=== PATIENT | female | born 1935 | race Caucasian/White ===

== ENCOUNTER → 2016-11-07 | Outpatient (CLI) | payer OTHER ==
[~2016-11-07] MED LIST: ACET-1311 PO; CHOL200027 PO; DOCU100C31 PO; ESCI1TAB6 PO; IPRASOL4 INH; KFL500 PO; LEVO50TA PO; LISI-461 PO; LSX20 PO; MRLP17 PO; MULTTAB PO; OXGN; PLMINSR5 INH; PRT/40 PO; SDMC1 PO; SUCR1TAB PO
[2016-11-07 09:13] LABS: BLOOD UREA NITROGEN 23 mg/dl (7-18); BUN/CREATININE RATIO 21.3 (10-20); CALCIUM 9.5 mg/dl (8.5-10.1); CARBON DIOXIDE 29 mmol/L (21-32); CHLORIDE 104 mmol/L (98-107); GLUCOSE 119 mg/dl (70-99); SODIUM 143 mmol/L (136-145)
== END ==
LOC: C.LABCC 08:49
PROVIDERS: ATTEND Internal Medicine
DX: R79.89 Other specified abnormal findings of blood chemistry (principal)

== ENCOUNTER → 2016-11-27 | Outpatient (CLI) | payer OTHER ==
[2016-11-27 08:17] LABS: BLOOD UREA NITROGEN 24 mg/dl (7-18); BUN/CREATININE RATIO 18.3 (10-20); CARBON DIOXIDE 33 mmol/L (21-32); CHLORIDE 103 mmol/L (98-107); GLUCOSE 103 mg/dl (70-99); POTASSIUM 4.9 mmol/L (3.5-5.1); SODIUM 143 mmol/L (136-145)
== END ==
LOC: C.LABCC 07:57
PROVIDERS: ATTEND Internal Medicine
DX: E87.1 Hypo-osmolality and hyponatremia (principal)

== ENCOUNTER → 2016-12-17 | Outpatient (CLI) | payer OTHER ==
--- NOTE | 2016-12-17 14:38 | DIAGNOSTIC IMAGING REPORT ---
CT OF THE CHEST WITHOUT IV CONTRAST CLINICAL HISTORY: Chronic obstructive pulmonary disease. COMPARISON STUDY: Chest CT August 07, 2016 and chest radiograph August 12, 2016. CT DOSE: 476.86 mGy.cm TECHNIQUE: Axial images of the chest were obtained without IV contrast. Images were reviewed in the axial, sagittal, and coronal planes. IV contrast was not administered for this examination. FINDINGS: No enlarged axillary, mediastinal or hilar lymph nodes are present. There is no pericardial effusion. Bilateral lower lobe opacities are suggestive of atelectasis with volume loss. The previously described left lower lobe nodule is partially obscured on this exam but likely visualized, shown on axial image 120 of 251. Measurements are difficult to obtain given the adjacent atelectasis but this nodule measures approximately 1.6 cm. There are a few indeterminate groundglass opacities within the right upper and middle lobes that measure up to 1.1 cm. These were present on prior exam. Central airways are patent. There is no pneumothorax. There is a trace left pleural effusion. There are multiple old thoracic spine compression fractures. Nodularity of the left adrenal gland is unchanged. IMPRESSION: 1. Bilateral lower lobe opacities suggestive of atelectasis with volume loss. 2. The previously described left lower lobe nodule is largely obscured by atelectasis although this nodule is likely visualized and has likely slightly increased in size, measuring approximately 1.6 cm. This remains suspicious for bronchogenic carcinoma. 3. Several indeterminate ground glass opacities within the right lung which could reflect low-grade neoplasms. 4. Moderate emphysema. 5. No thoracic lymphadenopathy. Electronically signed by: Rodrigo Arango M.D. 12/17/2016 2:37 PM Dictated Date/Time: 12/17/2016 10:59 AM
== END | disposition home or self-care (01) ==
LOC: C.CTS 10:29
PROVIDERS: ATTEND Internal Medicine Pulmonary Disease
DX: J44.9 Chronic obstructive pulmonary disease, unspecified (principal)

== ENCOUNTER → 2017-01-14 | Outpatient (CLI) | payer OTHER | LOC: C.LABCC 09:01 | PROVIDERS: ATTEND Internal Medicine | DX: K21.9 Gastro-esophageal reflux disease without esophagitis (principal); E55.9 Vitamin D deficiency, unspecified ==

== ENCOUNTER → 2017-03-14 | Outpatient (CLI) | payer OTHER ==
[~2017-03-14] MED LIST changes: +PANT40TA2 PO; -PRT/40 PO
[2017-03-14 01:47] LABS: URINE APPEARANCE CLEAR (CLEAR); URINE BILIRUBIN NEG (NEG); URINE COLOR DK YELLOW; URINE NITRITE NEG (NEG); URINE SPECIFIC GRAVITY 1.019 (1.000-1.030); UROBILINOGEN NEG (NEG); ZZUR CULT IF INDIC CLEAN CATCH NO
[2017-03-14 01:49] LABS: MANUAL MICROSCOPIC REQUIRED? NO; REVIEW REQ? NO
[2017-03-14 08:35] LABS: BLOOD UREA NITROGEN 46 mg/dl (7-18); BUN/CREATININE RATIO 23.2 (10-20); CARBON DIOXIDE 33 mmol/L (21-32); CHLORIDE 97 mmol/L (98-107); GLUCOSE 91 mg/dl (70-99); MAGNESIUM 2.3 mg/dl (1.8-2.4); POTASSIUM 4.4 mmol/L (3.5-5.1); SODIUM 137 mmol/L (136-145)
[2017-03-14 08:46] LABS: CALCIUM 9.6 mg/dl (8.5-10.1)
== END ==
LOC: C.LABCC 08:11
PROVIDERS: ATTEND Internal Medicine
DX: E03.9 Hypothyroidism, unspecified (principal); M81.0 Age-related osteoporosis without current pathological fracture; E55.9 Vitamin D deficiency, unspecified; I10 Essential (primary) hypertension; R45.1 Restlessness and agitation; R41.82 Altered mental status, unspecified

== ENCOUNTER → 2017-03-21 | Outpatient (CLI) | payer OTHER ==
[2017-03-21 09:59] LABS: BLOOD UREA NITROGEN 30 mg/dl (7-18); BUN/CREATININE RATIO 17.4 (10-20); CARBON DIOXIDE 33 mmol/L (21-32); CHLORIDE 99 mmol/L (98-107); GLUCOSE 87 mg/dl (70-99); SODIUM 138 mmol/L (136-145)
[2017-03-21 10:15] LABS: CALCIUM 9.5 mg/dl (8.5-10.1)
== END ==
LOC: C.LABCC 08:16
PROVIDERS: ATTEND Internal Medicine
DX: I10 Essential (primary) hypertension (principal)

== ENCOUNTER → 2017-03-27 | Outpatient (CLI) | payer OTHER ==
[2017-03-27 13:00] LABS: BLOOD UREA NITROGEN 33 mg/dl (7-18); BUN/CREATININE RATIO 19.4 (10-20); CALCIUM 9.4 mg/dl (8.5-10.1); CARBON DIOXIDE 32 mmol/L (21-32); CHLORIDE 95 mmol/L (98-107); GLUCOSE 86 mg/dl (70-99); POTASSIUM 3.9 mmol/L (3.5-5.1); SODIUM 135 mmol/L (136-145)
== END | disposition home or self-care (01) ==
LOC: C.LABCC 15:37
PROVIDERS: ATTEND Internal Medicine
DX: R60.9 Edema, unspecified (principal)

== ENCOUNTER → 2017-04-04 | Outpatient (CLI) | payer OTHER ==
[2017-04-04 08:55] LABS: BLOOD UREA NITROGEN 45 mg/dl (7-18); BUN/CREATININE RATIO 17.4 (10-20); CARBON DIOXIDE 32 mmol/L (21-32); CHLORIDE 98 mmol/L (98-107); GLUCOSE 97 mg/dl (70-99); POTASSIUM 3.7 mmol/L (3.5-5.1); SODIUM 138 mmol/L (136-145)
[2017-04-04 08:57] LABS: CALCIUM 9.4 mg/dl (8.5-10.1)
== END ==
LOC: C.LABCC 08:03
PROVIDERS: ATTEND Internal Medicine
DX: E87.1 Hypo-osmolality and hyponatremia (principal)

== ENCOUNTER → 2017-04-08 | Outpatient (CLI) | payer OTHER ==
[2017-04-08 10:27] LABS: BLOOD UREA NITROGEN 37 mg/dl (7-18); BUN/CREATININE RATIO 19.5 (10-20); CALCIUM 9.2 mg/dl (8.5-10.1); CARBON DIOXIDE 34 mmol/L (21-32); CHLORIDE 98 mmol/L (98-107); GLUCOSE 115 mg/dl (70-99); POTASSIUM 3.6 mmol/L (3.5-5.1); SODIUM 138 mmol/L (136-145)
== END ==
LOC: C.LABCC 08:24
PROVIDERS: ATTEND Internal Medicine
DX: I48.91 Unspecified atrial fibrillation (principal)

== ENCOUNTER → 2017-04-23 | Outpatient (CLI) | payer OTHER ==
[~2017-04-23] MED LIST changes: -PANT40TA2 PO; +PRT/40 PO
[2017-04-23 10:31] LABS: BLOOD UREA NITROGEN 18 mg/dl (7-18); BUN/CREATININE RATIO 14.1 (10-20); CARBON DIOXIDE 29 mmol/L (21-32); CHLORIDE 104 mmol/L (98-107); GLUCOSE 94 mg/dl (70-99); POTASSIUM 4.2 mmol/L (3.5-5.1); SODIUM 139 mmol/L (136-145)
[2017-04-23 12:30] LABS: CALCIUM 9.3 mg/dl (8.5-10.1)
== END ==
LOC: C.LABCC 07:51
PROVIDERS: ATTEND Internal Medicine
DX: N28.9 Disorder of kidney and ureter, unspecified (principal)

== ENCOUNTER → 2017-05-08 | Outpatient (CLI) | payer OTHER ==
[2017-05-08 08:51] LABS: BLOOD UREA NITROGEN 22 mg/dl (7-18); BUN/CREATININE RATIO 16.5 (10-20); CALCIUM 9.6 mg/dl (8.5-10.1); CARBON DIOXIDE 29 mmol/L (21-32); CHLORIDE 102 mmol/L (98-107); GLUCOSE 108 mg/dl (70-99); POTASSIUM 4.4 mmol/L (3.5-5.1); SODIUM 136 mmol/L (136-145)
== END ==
LOC: C.LABCC 08:01
PROVIDERS: ATTEND Internal Medicine
DX: N18.9 Chronic kidney disease, unspecified (principal)

== ENCOUNTER → 2017-07-05 | Outpatient (CLI) | payer OTHER ==
[2017-07-05 18:16] LABS: URINE APPEARANCE CLOUDY (CLEAR); URINE BILIRUBIN NEG (NEG); URINE COLOR YELLOW; URINE EPITHELIAL CELL AUTO 0-5 /lpf (0-5); URINE NITRITE NEG (NEG); URINE PH 6.5 (4.5-7.5); URINE SPECIFIC GRAVITY 1.021 (1.000-1.030); UROBILINOGEN NEG (NEG)
[2017-07-05 18:21] LABS: MANUAL MICROSCOPIC REQUIRED? NO; REVIEW REQ? NO
== END | disposition home or self-care (01) ==
LOC: C.LABCC 17:17
PROVIDERS: ATTEND Internal Medicine
DX: R41.0 Disorientation, unspecified (principal); R45.1 Restlessness and agitation

== ENCOUNTER → 2017-07-08 | Outpatient (CLI) | payer OTHER ==
[2017-07-08 08:24] LABS: BASO % 0.5 %; BASO ABS # 0.04 K/uL (0-0.2); COMPLETE YES; EOS % 5.1 %; IG% 0.3 %; LYMPH % 22.4 %; LYMPH ABS # 1.66 K/uL (1.2-3.4); MEAN CELL VOLUME 91.3 fL (80-100); MEAN CORPUSCULAR HEMOGLOBIN 29.3 pg (25-34); MEAN CORPUSCULAR HGB CONC 32.1 g/dl (32-36); MEAN PLATELET VOLUME 10.6 fL (7.4-10.4); MONO % 11.1 %; NEUT % 60.6 %; PLATELET COUNT 251 K/uL (130-400)
[2017-07-08 08:42] LABS: THYROID STIMULATING HORMONE 2.54 uIu/ml (0.300-4.500)
== END ==
LOC: C.LABCC 07:58
PROVIDERS: ATTEND Internal Medicine
DX: R41.0 Disorientation, unspecified (principal); R45.1 Restlessness and agitation; F22 Delusional disorders; R53.83 Other fatigue

== ENCOUNTER → 2017-10-08 | Outpatient (CLI) | payer OTHER ==
[~2017-10-08] MED LIST changes: +PANT40TA2 PO; -PRT/40 PO
[2017-10-08 08:55] LABS: BASO % 0.2 %; BASO ABS # 0.02 K/uL (0-0.2); COMPLETE YES; EOS % 0.6 %; IG% 0.4 %; LYMPH % 7.8 %; LYMPH ABS # 0.83 K/uL (1.2-3.4); MEAN CELL VOLUME 91.5 fL (80-100); MEAN CORPUSCULAR HEMOGLOBIN 29.3 pg (25-34); MEAN CORPUSCULAR HGB CONC 32.1 g/dl (32-36); MEAN PLATELET VOLUME 11.2 fL (7.4-10.4); PLATELET COUNT 195 K/uL (130-400); RED BLOOD COUNT 4.26 M/uL (4.2-5.4); WHITE BLOOD COUNT 10.69 K/uL (4.8-10.8)
[2017-10-08 09:05] LABS: ALT/SGPT 15 U/L (12-78); AST/SGOT 15 U/L (15-37); BLOOD UREA NITROGEN 21 mg/dl (7-18); BUN/CREATININE RATIO 27.7 (10-20); CALCIUM 9.2 mg/dl (8.5-10.1); CARBON DIOXIDE 34 mmol/L (21-32); CHLORIDE 97 mmol/L (98-107); CREATININE 0.76 mg/dl (0.60-1.20); GLUCOSE 131 mg/dl (70-99); POTASSIUM 4.3 mmol/L (3.5-5.1); SODIUM 135 mmol/L (136-145)
[2017-10-08 09:15] LABS: ALB/GLOB RATIO 0.6 (0.9-2); ALKALINE PHOSPHATASE 75 U/L (45-117)
[2017-10-08 09:33] LABS: URINE APPEARANCE CLOUDY (CLEAR); URINE BILIRUBIN NEG (NEG); URINE COLOR YELLOW; URINE EPITHELIAL CELL AUTO 0-5 /lpf (0-5); URINE NITRITE POS (NEG); URINE SPECIFIC GRAVITY 1.019 (1.000-1.030); UROBILINOGEN NEG (NEG)
[2017-10-08 09:46] LABS: MANUAL MICROSCOPIC REQUIRED? NO; REVIEW REQ? NO
== END ==
LOC: C.LABCC 08:33
PROVIDERS: ATTEND Internal Medicine
DX: R50.9 Fever, unspecified (principal); R06.82 Tachypnea, not elsewhere classified; R53.83 Other fatigue; R06.2 Wheezing; E05.90 Thyrotoxicosis, unspecified without thyrotoxic crisis or storm; R41.82 Altered mental status, unspecified

== ENCOUNTER → 2018-01-13 | Outpatient (CLI) | payer OTHER ==
[2018-01-13 08:50] LABS: BLOOD UREA NITROGEN 18 mg/dl (7-18); CALCIUM 9.2 mg/dl (8.5-10.1); CARBON DIOXIDE 35 mmol/L (21-32); GLUCOSE 90 mg/dl (70-99); SODIUM 136 mmol/L (136-145)
== END ==
LOC: C.LABCC 08:16
PROVIDERS: ATTEND Internal Medicine
DX: F03.90 Unspecified dementia, unspecified severity, without behavioral disturbance, psychotic disturbance, mood disturbance, and anxiety (principal)

== ENCOUNTER 2018-02-21 19:00 | Inpatient (IN) | payer OTHER ==
[~2018-02-21] VITALS: Ht 152.4 cm; Wt 67.1 kg
--- NOTE | 2018-02-21 19:23 | EMERGENCY ROOM VISIT NOTE ---
History Report prepared by Eddi: Hien Gillespie Under the Supervision of: Dr. Janene Flores DJordenO. First contact with patient: 19:06 Chief Complaint: RESPIRATORY PROBLEMS Stated Complaint: HYPOXIA, POSSIBLY ASPIRATED, Nursing Triage Summary: Pt from [facility]. was assisting with feeding patient and patient began to cough. Emesis x1. Pt was hypoxic, spO2 in the 50s for EMS. Arrives on NRB. Pt normally wears 3L O2. Pt coughing. Pt does not respond to verbal or stimuli at this time. History of dementia. 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 The patient currently lives at [facility]. Her reports he was assisting feeding his when she began to cough. He notes that she vomited once, she was hypoxic, and her oxygen saturation was in the 50s for EMS. Her also states that she has not had any fevers recently. The patient normally wears 3L O2. She has a history of dementia and lung problems. Son also reports prior stroke. The patient does not respond to verbal or stimuli. He states this isn't uncommon. HPI and ROS limited due to the patient's baseline condition. 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 HPI and ROS limited due to the patient's baseline condition. Past Medical & Surgical Medical Problems: (1) Ambulatory dysfunction (2) COPD (chronic obstructive pulmonary disease) (3) HTN (hypertension) (4) Hypothyroidism (5) Hypoxia (6) Perforated duodenal bulb ulcer (7) Pneumoperitoneum (8) Thoracic compound fracture Surgical Problems: (1) H/O: hysterectomy Family History Cancer Social History Smoking Status: Never Smoker Alcohol Use: none Marital Status: Housing Status: lives with family Occupation Status: retired Current/Historical Medications Scheduled Bisacodyl (Dulcolax), 1 SUPP [place] PRN UD Budesonide (Inhalation) (Pulmicort Respules 0.5MG/2ML), 1 UNIT PO Q12 Cholecalciferol (Vitamin D), 2,000 UNITS PO DAILY Docusate Sodium (Docusate Sodium), 100 MG PO BID Ketoconazole (Topical) (Ketoconazole), 1 APPLN TOP 2XWK Levothyroxine Sodium (Synthroid), 50 MCG PO DAILY Lorazepam (Lorazepam), 0.25 MG PO BI Magnesium Hydroxide (Milk Of Magnesia), 30 ML PO PRN UD Miconazole Nitrate (Topical) (Aloe Guy Clear Antifung), 1 APPLN TOP AMPM Pantoprazole (Pantoprazole Sodium), 40 MG PO BID Saline (Deep Sea Nasal [place]), 2 SPRAYS CAROLINE BID Sodium Phosphate/Biphosphate (Fleet Enema), 1 EA NV PRN UD Sucralfate (Sucralfate), 1 GM PO ACHS [Therms-M Tab], 1 TAB PO DAILY Scheduled PRN Acetaminophen (Tylenol), 650 MG PO Q8 PRN for Pain Allergies Coded Allergies: [place] (Verified Allergy, Intermediate, RASH, 08/13/16) Physical Exam Vital Signs Date Time Temp Pulse Resp B/P (MAP) Pulse Ox O2 Delivery O2 Flow Rate FiO2 02/22/18 00:01 147/68 02/22/18 00:00 101 28 96 BiPAP 40 02/21/18 23:14 139/73 02/21/18 23:00 98 29 95 02/21/18 21:57 94 20 123/67 95 BiPAP 40 02/21/18 20:56 101 98 40 02/21/18 20:55 104 20 128/79 98 Oxymask 7.0 02/21/18 20:53 107 27 98 BiPAP/CPAP 40 02/21/18 20:16 109 02/21/18 19:49 116 20 164/90 95 Oxymask 10.0 02/21/18 19:24 90 Oxymask 10.0 02/21/18 19:15 86 Oxymask 5.0 02/21/18 19:05 Nasal Cannula 3.0 02/21/18 19:05 36.8 120 20 186/91 88 Nasal Cannula 3.0 02/21/18 19:05 88 Nasal Cannula Physical Exam GENERAL: alert, well appearing, well nourished, no distress, non-toxic. Pale. Increased work of breathing. EYE EXAM: Cannot do ENT exam due to patient cooperation. OROPHARYNX: Cannot do ENT exam due to patient cooperation. NECK: supple, no nuchal rigidity, no adenopathy, non-tender LUNGS: Lung sounds diminished bilaterally. No wheezes, rhonchi, or rales. HEART: no murmurs, S1 normal and S2 normal. Heart is tachycardic but regular. ABDOMEN: abdomen soft, non-tender, normo-active bowel sounds, no masses, no rebound or guarding. BACK: Back is symmetrical on inspection and there is no deformity, no midline tenderness, no CVA tenderness. SKIN: no rashes and no bruising EXTREMITIES: Bilateral upper and lower extremities bilateral pulses, chronic appearing atrophy and contractures. No LE edema. NEURO EXAM: Patient with eyes closed. Unable to cooperate for neuro testing. Mild spontaneous movement of upper extremities noted, none in the LE which is chronic per patients son. Medical Decision & Procedures ER Provider Diagnostic Interpretation: Radiology results have been interpreted by the radiologist and reviewed by me. SINGLE VIEW CHEST CLINICAL HISTORY: Dyspnea. FINDINGS: An AP, portable, semierect chest radiograph is compared to study dated 08/12/2016 and correlated with chest CT dated 12/17/2016. The examination is significantly degraded by portable technique and patient rotation. The cardiomediastinal silhouette is unremarkable. There is atherosclerotic calcification of the thoracic aorta. Emphysema and chronic interstitial thickening are similar to previous. There are low lung volumes. Platelike atelectasis versus scarring in the lower lobes is similar to previous. No pneumothorax is seen. The skeletal structures are osteopenic. The bony thorax is grossly intact. IMPRESSION: Low lung volumes and emphysema with no acute cardiopulmonary abnormality. Electronically signed by: Richard Poon M.D. 02/21/2018 7:56 PM Laboratory Results Test 02/21/18 18:35 02/21/18 19:32 02/21/18 20:08 02/22/18 00:24 Prothrombin Time 9.8 SECONDS (9.0-12.0) Prothromb Time International Ratio 0.9 (0.9-1.1) Magnesium Level 1.8 mg/dl (1.8-2.4) Total Bilirubin 0.5 mg/dl (0.2-1) Aspartate Amino Transf (AST/SGOT) 18 U/L (15-37) Alanine Aminotransferase (ALT/SGPT) 13 U/L (12-78) Alkaline Phosphatase 102 U/L (45-117) Troponin I < 0.015 ng/ml (0-0.045) Pro-B-Type Natriuretic Peptide 227 pg/ml (0-1800) Total Protein 7.6 gm/dl (6.4-8.2) Albumin 3.0 gm/dl (3.4-5.0) Globulin 4.6 gm/dl (2.5-4.0) Albumin/Globulin Ratio 0.7 (0.9-2) Lipase 127 U/L (73-393) Influenza Type A Antigen Neg for Influ A (NEG) Influenza Type B Antigen Neg for Influ B (NEG) Arterial Blood pH 7.22 (7.35-7.45) Arterial Blood Partial Pressure CO2 91 mmHg (35-46) Arterial Blood Partial Pressure O2 80 mm/Hg (80-95) Arterial Blood HCO3 36 mmol/L (19-24) Arterial Blood Oxygen Saturation 93.6 % (90-95) Arterial Blood Base Excess 5.0 mEq/L (-9-1.8) Arterial Blood Gas Delivery 10L Parish Test POS (POS) Bedside Blood Gas pH (LAB) 7.35 (7.35-7.45) Bedside Blood Gas pCO2 (LAB) 74 mmHg (35-46) Bedside Blood Gas pO2 (LAB) 72 mmHg (80-95) Bedside Blood Gas HCO3 (LAB) 41 meq/L (19-24) Bedside Blood Gas Total CO2 > 40 mEq/l (24-31) Bedside Blood Gas Base Excess (LAB) 15.0 meq/L (-9-1.8) Bedside Blood Gas O2 Saturation 93.0 % (90-95) Laboratory results per my review. Medications Administered Medications (Trade) Dose Ordered Sig/Heidi Route Start Time Stop Time Status Last Admin Dose Admin Piperacillin Sod/ Tazobactam Sod (Zosyn Iv) 4.5 gm NOW STAT IV 02/21/18 19:50 02/21/18 19:52 DC 02/21/18 20:19 4.5 GM Albuterol/ Ipratropium (Duoneb) 3 ml NOW STAT INH 02/21/18 20:34 02/21/18 20:35 DC 02/21/18 20:43 3 ML Sodium Chloride 1,000 ml @ 200 mls/hr Q5H STAT IV 02/21/18 21:16 02/22/18 02:15 DC 02/21/18 21:16 200 MLS/HR ECG Per My Interpretation Indication: SOB/dyspnea Rate (beats per minute): 113 Rhythm: sinus tachycardia Findings: no acute ischemic change, other (normal axis, normal intervals) ED Course 1912: The patient was evaluated in room A3. A complete history and physical exam was performed. 1950: Zosyn Iv 4.5 gm IV 2029: I checked on the patient at this time. Her heart rate was 99 and her stats were 99%. She has decreased work of breathing. 2033: Duoneb 3 ml INH 2113: I checked on the patient at this time. She appears to be doing much better on bipap. 2115: Sodium Chloride 1000 ml @ 200 mls/hr IV 2117: Dr. Valencia, [facility] Hospitalist, will further evaluate the patient. Medical Decision Differential diagnosis: Etiologies such as infections, reactive airway disease, pneumonia, pneumothorax , COPD, CHF, cardiac ischemia, pulmonary embolism, musculoskeletal, gastrointestinal, as well as others were entertained. Pt with hx of dementia/stroke, wears oxygen chronically, presented with concern for aspiration given episode of vomiting, coughing, and hypoxia while eating. While pt's oxygen level improved with facemask and 10 lpm, abg revealed significant hypercapnia, so bipap applied. After 2 hours of bipap, abg improved and pt now opening eyes and smiling at family. Pt unable to answer any questions. Doesn't appear to be in any additional distress once WOB improved. Covered with antibiotics as a precaution. Nebs given. Family aware of all results and concerns and were agreeable with hospitalist evaluation for additional treatment. Per son, pt was in her usual state of health prior to this episode at dinner. No other recent illness or new symptoms. Medication Reconcilliation Current Medication List: was personally reviewed by me Blood Pressure Screening Patient's blood pressure: Elevated blood pressure Blood pressure disposition: Elevated BP felt to be situational Consults Time Called: 2109 Consulting Physician: Dr. Valencia, [facility] Hospitalist Returned Call: 2117 Dr. Valencia, [facility] Hospitalist, will further evaluate the patient. Impression Primary Impression: Dyspnea Additional Impressions: Hypoxia Vomiting Scribe Attestation The scribe's documentation has been prepared under my direction and personally reviewed by me in its entirety. I confirm that the note above accurately reflects all work, treatment, procedures, and medical decision making performed by me. Departure Information Dispostion Being Evaluated By Hospitalist (Dr. Valencia, [facility] Hospitalist) Referrals No Doctor, Assigned (PCP) Patient Instructions My [facility] Health Problem Qualifiers Primary Impression: Dyspnea Dyspnea type: shortness of breath Qualified Codes: R06.02 - Shortness of breath Additional Impressions: Vomiting Vomiting type: unspecified Vomiting Intractability: unspecified Nausea presence: unspecified Qualified Codes: R11.10 - Vomiting, unspecified
[2018-02-21 19:40] LABS: BASO % 0.3 %; BASO ABS # 0.04 K/uL (0-0.2); EOS % 2.9 %; HEMOGLOBIN 14.2 g/dL (12.0-16.0); IG# 0.17 K/uL (0.00-0.02); LYMPH % 27.7 %; LYMPH ABS # 3.81 K/uL (1.2-3.4); MEAN CELL VOLUME 90.3 fL (80-100); MEAN CORPUSCULAR HEMOGLOBIN 29.2 pg (25-34); MEAN CORPUSCULAR HGB CONC 32.3 g/dl (32-36); MEAN PLATELET VOLUME 9.9 fL (7.4-10.4); MONO % 6.8 %; MONO ABS # 0.94 K/uL (0.11-0.59); NEUT % 61.1 %; NEUT ABS # 8.38 K/uL (1.4-6.5); PLATELET COUNT 339 K/uL (130-400); RED CELL DISTRIBUTION WIDTH CV 13.8 % (11.5-14.5); RED CELL DISTRIBUTION WIDTH SD 45.3 fL (36.4-46.3); WHITE BLOOD COUNT 13.74 K/uL (4.8-10.8)
[2018-02-21 19:48] LABS: ALT/SGPT 13 U/L (12-78); AST/SGOT 18 U/L (15-37); BLOOD UREA NITROGEN 13 mg/dl (7-18); CALCIUM 8.9 mg/dl (8.5-10.1); CARBON DIOXIDE 36 mmol/L (21-32); CREATININE 0.89 mg/dl (0.60-1.20); GLUCOSE 209 mg/dl (70-99); LIPASE 127 U/L (73-393); POTASSIUM 4.4 mmol/L (3.5-5.1); SODIUM 131 mmol/L (136-145)
[2018-02-21] MEDS ORDERED: PIPERACILLIN/TAZOBACTAM 4.5 GM/100ML D5W IV STA (19:50)
[2018-02-21 19:52] LABS: INR 0.9 (0.9-1.1)
[2018-02-21 19:53] LABS: ALKALINE PHOSPHATASE 102 U/L (45-117); TOTAL PROTEIN 7.6 gm/dl (6.4-8.2)
--- NOTE | 2018-02-21 19:57 | DIAGNOSTIC IMAGING REPORT ---
SINGLE VIEW CHEST CLINICAL HISTORY: Dyspnea. FINDINGS: An AP, portable, semierect chest radiograph is compared to study dated 08/12/2016 and correlated with chest CT dated 12/17/2016. The examination is significantly degraded by portable technique and patient rotation. The cardiomediastinal silhouette is unremarkable. There is atherosclerotic calcification of the thoracic aorta. Emphysema and chronic interstitial thickening are similar to previous. There are low lung volumes. Platelike atelectasis versus scarring in the lower lobes is similar to previous. No pneumothorax is seen. The skeletal structures are osteopenic. The bony thorax is grossly intact. IMPRESSION: Low lung volumes and emphysema with no acute cardiopulmonary abnormality. Electronically signed by: Richard Poon M.D. 02/21/2018 7:56 PM Dictated Date/Time: 02/21/2018 7:54 PM
[2018-02-21 20:16] LABS: INFLUENZA B ANTIGEN Neg for Influ B (NEG)
[2018-02-21] MEDS ORDERED: ALBUT/IPRATROP 3MG/0.5MG NEB 3 ML VIAL INH STA (20:34)
[2018-02-21 20:53] VITALS: PULSE 107; O2SAT 98
[2018-02-21 20:56] VITALS: PULSE 101; O2SAT 98
[2018-02-21] MEDS ORDERED: MOML PO (21:09)
[2018-02-21] MEDS ORDERED: ATV5X PO (21:09)
[2018-02-21] MEDS ORDERED: BISA10SU3 PR (21:09)
[2018-02-21] MEDS ORDERED: KETO2SHA TOP (21:09)
[2018-02-21] MEDS ORDERED: CHOL200010 PO (21:09)
[2018-02-21] MEDS ORDERED: [UNRECOGNIZED DRUG - OTHER] PO (21:09)
[2018-02-21] MEDS ORDERED: SODIENE PR (21:09)
[2018-02-21] MEDS ORDERED: SALI0.6517 NAE (21:09)
[2018-02-21] MEDS ORDERED: [UNRECOGNIZED DRUG - CODE] TOP (21:09)
[2018-02-21] MEDS ORDERED: PLMINS PO (21:09)
[2018-02-21] MEDS ORDERED: SODIUM CHLORIDE 0.9% 1000ML 1,000 ML IV STA (21:16)
[2018-02-22] VITALS (15 sets, daily range): BP systolic 98–155; BP diastolic 57–78; PULSE 66–102; TEMP 36.7–37.2; O2SAT 92–99; Ht 152.4 cm; Wt 67.1 kg
--- NOTE | 2018-02-22 01:03 | History and Physical ---
History & Physical Date & Time of Service: Feb 22, 2018 at 00:45 Chief Complaint: Hypoxia, Possibly Aspirated, Primary Care Physician: Chaz Block M.D. History of Present Illness Source: patient, family 83 year old female resident of [facility] with pMHx of COPD with continuous oxygen need at baseline, HTN, hypothyroidism, and dementia presents to hospital after having coughing fit post meal after drinking some water. She turned pale and doshi and was unable to catch her breath for a few minutes. This was following by projectile vomiting. When assessed by EMS, she was noted to be hypoxic with oxygen saturations in the 50s for EMS. Her states she has a lot of coughing at baseline, and is unable to expectorate. She has never had her ability to swallow assessed. She has been well up until today. No URTI symptoms, fevers/chills, and family is unaware of any diarrhea or GI complaints. Family states she has been sleeping a lot lately. Patient is not mobile, she travels via wheelchair, and thus they are unable to comment on symptoms with exertion. She is an ex smoker of 5 years. She has no cardiac or DM history, as per family. In the ER, patient was given DuoNeb and a dose of Zosyn. Labs revealed leukocytosis, and ABG revealed significant respiratory acidosis. Despite maximizing oxygen via oxymask, sats remained in the 80s. There was an improvement in alertness, saturations, and blood gas values upon changing to Bipap. ROS is unremarkable except as noted above. Past Medical/Surgical History Medical Problems: (1) Abdominal pain (2) Abdominal pain (3) Altered mental status (4) Ambulatory dysfunction (5) Back pain (6) Back strain (7) Compression fracture (8) Constipation (9) COPD (chronic obstructive pulmonary disease) (10) Dyspnea (11) Elevated troponin (12) Fall (13) Femur fracture, left (14) Fracture of proximal end of left femur (15) Generalized weakness (16) Hemorrhoid (17) HTN (hypertension) (18) Hyponatremia (19) Hypothyroidism (20) Hypoxia (21) Perforated duodenal bulb ulcer (22) Pneumoperitoneum (23) Rectal bleed (24) Rectal bleeding (25) Thoracic compound fracture (26) Upper GI bleed Surgical Problems: (1) H/O: hysterectomy Family History Cancer Non contributory Social History Smoking Status: Former Smoker Smokeless Tobacco Use: No Drug Use: none Marital Status: Housing status: lives with significant other Occupational Status: retired Immunizations History of Influenza Vaccine: Yes Influenza Vaccine Date: Jul 15, 2013 History of Tetanus Vaccine?: Unknown History of Pneumococcal: Yes History of Hepatitis B Vaccine: No Allergies Coded Allergies: [place] (Verified Allergy, Intermediate, RASH, 08/13/16) Home Medications Scheduled Bisacodyl (Dulcolax), 1 SUPP SD PRN UD Budesonide (Inhalation) (Pulmicort Respules 0.5MG/2ML), 1 UNIT PO Q12 Cholecalciferol (Vitamin D), 2,000 UNITS PO DAILY Docusate Sodium (Docusate Sodium), 100 MG PO BID Ketoconazole (Topical) (Ketoconazole), 1 APPLN TOP 2XWK Levothyroxine Sodium (Synthroid), 50 MCG PO DAILY Lorazepam (Lorazepam), 0.25 MG PO BI Magnesium Hydroxide (Milk Of Magnesia), 30 ML PO PRN UD Miconazole Nitrate (Topical) (Aloe Oral Clear Antifung), 1 APPLN TOP AMPM Pantoprazole (Pantoprazole Sodium), 40 MG PO BID Saline (Deep Sea Nasal [place]), 2 SPRAYS CAROLINE BID Sodium Phosphate/Biphosphate (Fleet Enema), 1 EA SD PRN UD Sucralfate (Sucralfate), 1 GM PO ACHS [Therms-M Tab], 1 TAB PO DAILY Scheduled PRN Acetaminophen (Tylenol), 650 MG PO Q8 PRN for Pain Physical Exam Vital Signs Date Time Temp Pulse Resp B/P (MAP) Pulse Ox O2 Delivery O2 Flow Rate FiO2 02/22/18 00:01 147/68 02/22/18 00:00 101 28 96 BiPAP 40 02/21/18 23:14 139/73 02/21/18 23:00 98 29 95 02/21/18 21:57 94 20 123/67 95 BiPAP 40 02/21/18 20:56 101 98 40 02/21/18 20:55 104 20 128/79 98 Oxymask 7.0 02/21/18 20:53 107 27 98 BiPAP/CPAP 40 02/21/18 20:16 109 02/21/18 19:49 116 20 164/90 95 Oxymask 10.0 02/21/18 19:24 90 Oxymask 10.0 02/21/18 19:15 86 Oxymask 5.0 02/21/18 19:05 Nasal Cannula 3.0 02/21/18 19:05 36.8 120 20 186/91 88 Nasal Cannula 3.0 02/21/18 19:05 88 Nasal Cannula General Appearance: no apparent distress Head: normocephalic, atraumatic Eyes: sclerae normal, + pertinent finding (Eyes watering) ENT: hearing grossly normal, + pertinent finding (Unable to assess pharynx due to Bipap mask) Neck: supple, no JVD Respiratory/Chest: no respiratory distress, no accessory muscle use, + decreased breath sounds, + pertinent finding (No crackles or wheezing) Cardiovascular: regular rate, rhythm, no murmur, normal peripheral pulses Abdomen/GI: normal bowel sounds, non tender, soft Extremities/Musculoskelatal: no calf tenderness, no pedal edema Neurologic/Psych: alert, normal mood/affect, + pertinent finding (Not talkative. Responds with shaking/nodding head) Skin: normal color, warm/dry, no rash Diagnostics Laboratory Results Results Past 24 Hours Test 02/21/18 18:35 02/21/18 19:32 02/21/18 20:08 02/22/18 00:24 Range/Units White Blood Count 13.74 4.8-10.8 K/uL Red Blood Count 4.87 4.2-5.4 M/uL Hemoglobin 14.2 12.0-16.0 g/dL Hematocrit 44.0 37-47 % Mean Corpuscular Volume 90.3 80-100 fL Mean Corpuscular Hemoglobin 29.2 25-34 pg Mean Corpuscular Hemoglobin Concent 32.3 32-36 g/dl Platelet Count 339 130-400 K/uL Mean Platelet Volume 9.9 7.4-10.4 fL Neutrophils (%) (Auto) 61.1 % Lymphocytes (%) (Auto) 27.7 % Monocytes (%) (Auto) 6.8 % Eosinophils (%) (Auto) 2.9 % Basophils (%) (Auto) 0.3 % Neutrophils # (Auto) 8.38 1.4-6.5 K/uL Lymphocytes # (Auto) 3.81 1.2-3.4 K/uL Monocytes # (Auto) 0.94 0.11-0.59 K/uL Eosinophils # (Auto) 0.40 0-0.5 K/uL Basophils # (Auto) 0.04 0-0.2 K/uL RDW Standard Deviation 45.3 36.4-46.3 fL RDW Coefficient of Variation 13.8 11.5-14.5 % Immature Granulocyte % (Auto) 1.2 % Immature Granulocyte # (Auto) 0.17 0.00-0.02 K/uL Prothrombin Time 9.8 9.0-12.0 SECONDS Prothromb Time International Ratio 0.9 0.9-1.1 Sodium Level 131 136-145 mmol/L Potassium Level 4.4 3.5-5.1 mmol/L Chloride Level 92 98-107 mmol/L Carbon Dioxide Level 36 21-32 mmol/L Anion Gap 3.0 3-11 mmol/L Blood Urea Nitrogen 13 7-18 mg/dl Creatinine 0.89 0.60-1.20 mg/dl Estimated GFR () 70.0 Estimated GFR (Non- 60.4 BUN/Creatinine Ratio 14.5 10-20 Random Glucose 209 70-99 mg/dl Calcium Level 8.9 8.5-10.1 mg/dl Magnesium Level 1.8 1.8-2.4 mg/dl Total Bilirubin 0.5 0.2-1 mg/dl Aspartate Amino Transf (AST/SGOT) 18 15-37 U/L Alanine Aminotransferase (ALT/SGPT) 13 12-78 U/L Alkaline Phosphatase 102 45-117 U/L Troponin I < 0.015 0-0.045 ng/ml Pro-B-Type Natriuretic Peptide 227 0-1800 pg/ml Total Protein 7.6 6.4-8.2 gm/dl Albumin 3.0 3.4-5.0 gm/dl Globulin 4.6 2.5-4.0 gm/dl Albumin/Globulin Ratio 0.7 0.9-2 Lipase 127 73-393 U/L Influenza Type A Antigen Neg for Influ A NEG Influenza Type B Antigen Neg for Influ B NEG Arterial Blood pH 7.22 7.35-7.45 Arterial Blood Partial Pressure CO2 91 35-46 mmHg Arterial Blood Partial Pressure O2 80 80-95 mm/Hg Arterial Blood HCO3 36 19-24 mmol/L Arterial Blood Oxygen Saturation 93.6 90-95 % Arterial Blood Base Excess 5.0 -9-1.8 mEq/L Arterial Blood Gas Delivery 10L Parish Test POS POS Bedside Blood Gas pH (LAB) 7.35 7.35-7.45 Bedside Blood Gas pCO2 (LAB) 74 35-46 mmHg Bedside Blood Gas pO2 (LAB) 72 80-95 mmHg Bedside Blood Gas HCO3 (LAB) 41 19-24 meq/L Bedside Blood Gas Total CO2 > 40 24-31 mEq/l Bedside Blood Gas Base Excess (LAB) 15.0 -9-1.8 meq/L Bedside Blood Gas O2 Saturation 93.0 90-95 % Microbiology Results 02/21/18 Blood Culture, Received Pending 02/21/18 Blood Culture, Received Pending Diagnostic Radiology SINGLE VIEW CHEST CLINICAL HISTORY: Dyspnea. FINDINGS: An AP, portable, semierect chest radiograph is compared to study dated 08/12/2016 and correlated with chest CT dated 12/17/2016. The examination is significantly degraded by portable technique and patient rotation. The cardiomediastinal silhouette is unremarkable. There is atherosclerotic calcification of the thoracic aorta. Emphysema and chronic interstitial thickening are similar to previous. There are low lung volumes. Platelike atelectasis versus scarring in the lower lobes is similar to previous. No pneumothorax is seen. The skeletal structures are osteopenic. The bony thorax is grossly intact. IMPRESSION: Low lung volumes and emphysema with no acute cardiopulmonary abnormality. Impression Assessment and Plan 83 year old female resident of [facility] with pMHx of COPD with continuous oxygen need at baseline, HTN, hypothyroidism, and dementia presents to hospital hypoxia from possible aspiration requiring Bipap. Acute on chronic hypoxic respiratory failure with COPD - Uses 3L O2 at baseline, requiring Bipap at present. Wean as tolerated. - DuoNeb - Continue home Pulmicort Possible aspiration pneumonia - Aspiration precautions - IV Unasyn - Speech evaluation HTN - stable currently. Not on any home meds Hypothyroidism - Continue levothyroxine GERD - Continue pantoprazole Dementia - Continue Lorazepam VTE ppx - Enoxaparin 40mg SC q12h DO NOT RESUSCITATE Resident Physician Supervision Note: Pt evaluated independently. I discussed the case with the resident and agree with the findings and plan as documented in the note. Any exceptions or clarifications are listed here: 83 y/o F Hx COPD - home 02, HTN, hypothyroid, dementia. Pt was being fed by family when she may have aspirated some food, appeared to be choking, and proceeded to vomit - on arrival EMS noted an 02 saturation in the 50s. She was mentating poorly on arrival to the ER. She gradually improved with BiPAP although saturation remained marginal in the 80s. OE She is awake on BiPAP at the time of eval - it is difficult to gauge distress S1,2 R Lung exam is limited by effort and large air noises NT, ND minimal edema P: Pt is being treated for aspiration PNM with Unasyn - she s DNR so that resp status is being managed with BiPAP and nebs HTN is not currently treated Cont Synthroid - can convert to IV if needed Reg her dementia - she is cooperative on admission - she does have family support Documented By: Washington Valencia Advanced Directives Existing Power of Equine Science Instructor: Yes ( ishaan) Resuscitation Status DNR VTE Prophylaxis Will order VTE Prophylaxis: Yes Resident Tracking Resident Involvement: Resident Care Provided Care Provided: Adult Hospital Medicine
[2018-02-22] MEDS ORDERED: ONDANSETRON INJ 2 MG/ML 2 ML VIAL IV PRN (01:15)
[2018-02-22] MEDS ORDERED: MAGNESIUM HYDROXIDE SUSP 30 ML UDC PO PRN (01:15)
[2018-02-22] MEDS ORDERED: NITROGLYCERIN 0.4 MG SL PER TAB CHARGE SL PRN (01:15)
[2018-02-22] MEDS ORDERED: ACETAMINOPHEN 325 MG TAB PO PRN (01:15)
[2018-02-22] MEDS ORDERED: POLYETHYLENE (MIRALAX) 17 GM PACK PO PRN (01:15)
[2018-02-22] MEDS ORDERED: ALUMINUM/MAGNESIUM/SIMETH (MAALOX MAX) 30 ML UDC PO PRN (01:15)
[2018-02-22] MEDS ORDERED: PATIENT'S HEIGHT AND/OR WEIGHT NEEDED SCH (03:00)
[2018-02-22] MEDS: AMPICILLIN/SULBACTAM SOD INJ 3,000 MG in SODIUM CHLORIDE 0.9% 100ML 100 ML IV SCH ×4 (04:16→22:32)
[2018-02-22] MEDS: LEVOTHYROXINE 50 MCG TAB PO SCH (05:54)
[2018-02-22] MEDS: SUCRALFATE 1 GM TAB PO SCH ×4 (05:54→20:41)
[2018-02-22] MEDS: ENOXAPARIN 40 MG/0.4 ML SYR SC SCH (05:55)
[2018-02-22] MEDS: BUDESONIDE 0.5 MG/2 ML VIAL (PULMICORT) INH SCH ×2 (06:54→18:59)
[2018-02-22] MEDS: ALBUT/IPRATROP 3MG/0.5MG NEB 3 ML VIAL INH SCH ×4 (06:54→18:59)
[2018-02-22] MEDS: SODIUM CHLORIDE 0.65% NA SOLN 45 ML (OCEAN) NAE SCH ×2 (07:41→20:41)
[2018-02-22] MEDS: LORAZEPAM 0.5 MG TAB PO SCH ×2 (07:41→19:55)
[2018-02-22] MEDS: PANTOprazole SOD 40 MG TAB PO SCH ×2 (07:42→20:41)
[2018-02-22] MEDS: DOCUSATE SODIUM 100 MG CAP PO SCH ×2 (07:42→20:41)
--- NOTE | 2018-02-22 08:27 | Family Medicine Progress Note ---
Progress Note Date of Service Feb 22, 2018. Subjective Pt evaluation today including: conversation w/ patient, conversation w/ family , physical exam, chart review, lab review Unable to obtain history and ROS. Patient is nonverbal at baseline. Today responded minimally to verbal or pain stimuli. Discussed with patients family in the afternoon. Medications Current Inpatient Medications Medications (Trade) Dose Ordered Sig/Heidi Route Start Time Stop Time Status Last Admin Dose Admin Enoxaparin Sodium (Lovenox Inj) 40 mg Q24H SC 02/22/18 06:00 03/24/18 05:59 02/22/18 05:55 40 MG Acetaminophen (Tylenol Tab) 650 mg Q4H PRN PO 02/22/18 01:15 03/24/18 01:14 Al Hydrox/Mg Hydrox/Simethicone (Maalox Max Susp) 15 ml Q4H PRN PO 02/22/18 01:15 03/24/18 01:14 Ondansetron HCl (Zofran Inj) 4 mg Q6H PRN IV 02/22/18 01:15 03/24/18 01:14 Nitroglycerin (Nitrostat Tab) 0.4 mg UD PRN SL 02/22/18 01:15 03/24/18 01:14 Polyethylene (Miralax Powder Packet) 17 gm DAILY PRN PO 02/22/18 01:15 03/24/18 01:14 Budesonide (Pulmicort Respules 0.5MG/ 2ML Neb Soln) 0.5 mg Q12R INH 02/22/18 08:00 03/24/18 07:59 02/22/18 06:54 0.5 MG Docusate Sodium (coLACE CAP) 100 mg BID PO 02/22/18 09:00 03/24/18 08:59 Levothyroxine Sodium (Synthroid Tab) 50 mcg DAILYBB PO 02/22/18 06:00 03/24/18 05:59 02/22/18 05:54 50 MCG Lorazepam (Ativan Tab) 0.25 mg Q12H PO 02/22/18 08:00 03/24/18 07:59 Magnesium Hydroxide (Milk Of Magnesia Susp) 30 ml DAILY PRN PO 02/22/18 01:15 03/24/18 01:14 Pantoprazole Sodium (Protonix Tab) 40 mg BID PO 02/22/18 09:00 03/24/18 08:59 Sodium Chloride ([place] Nasal [place]) 2 sprays BID CAROLINE 02/22/18 09:00 03/24/18 08:59 Sucralfate (Carafate Tab) 1 gm ACHS PO 02/22/18 07:00 03/24/18 06:59 02/22/18 05:54 1 GM Albuterol/ Ipratropium (Duoneb) 3 ml QIDR INH 02/22/18 08:00 03/24/18 07:59 02/22/18 15:23 3 ML Ampicillin Sodium/ Sulbactam Sodium 3000 mg/Sodium Chloride 108 ml @ 200 mls/hr Q6H IV 02/22/18 04:00 03/01/18 03:59 02/22/18 15:16 200 MLS/HR Sodium Chloride 1,000 ml @ 85 mls/hr [id number] IV 02/22/18 15:15 03/24/18 15:14 02/22/18 15:30 85 MLS/HR Objective Vital Signs Date Time Temp Pulse Resp B/P (MAP) Pulse Ox O2 Delivery O2 Flow Rate FiO2 02/22/18 16:00 Oxymask 5.0 02/22/18 15:38 37.1 88 20 155/74 (101) 94 Oxymask 02/22/18 15:24 82 20 93 Mask 5.0 02/22/18 12:00 BiPAP 02/22/18 11:55 37.1 79 22 98/57 (71) 97 BiPAP 02/22/18 11:14 66 96 40 02/22/18 11:12 66 23 96 BiPAP/CPAP 40 02/22/18 08:00 BiPAP 02/22/18 07:10 37.0 86 22 115/75 (88) 95 BiPAP 02/22/18 06:55 79 92 40 02/22/18 06:54 79 27 92 BiPAP/CPAP 40 02/22/18 03:38 97 92 40 02/22/18 02:57 37.2 102 33 150/78 94 BiPAP 40 02/22/18 01:35 103 33 19/74 94 BiPAP 40 02/22/18 00:01 147/68 02/22/18 00:00 101 28 96 BiPAP 40 02/21/18 23:14 139/73 02/21/18 23:00 98 29 95 02/21/18 21:57 94 20 123/67 95 BiPAP 40 02/21/18 20:56 101 98 40 02/21/18 20:55 104 20 128/79 98 Oxymask 7.0 02/21/18 20:53 107 27 98 BiPAP/CPAP 40 02/21/18 20:16 109 02/21/18 19:49 116 20 164/90 95 Oxymask 10.0 02/21/18 19:24 90 Oxymask 10.0 02/21/18 19:15 86 Oxymask 5.0 02/21/18 19:05 Nasal Cannula 3.0 02/21/18 19:05 36.8 120 20 186/91 88 Nasal Cannula 3.0 02/21/18 19:05 88 Nasal Cannula Physical Exam General Appearance: WD/WN, no apparent distress Neck: supple, no adenopathy, thyroid normal Respiratory/Chest: chest non-tender, lungs clear, normal breath sounds, no respiratory distress Cardiovascular: regular rate, rhythm, no edema, no gallop, no murmur Extremities: normal inspection, no pedal edema Neurologic/Psychiatric: alert, normal mood/affect, oriented x 3 Skin: normal color, warm/dry, no rash Laboratory Results 02/21/18 18:35 Red Blood Count 4.87, Mean Corpuscular Volume 90.3, Mean Corpuscular Hemoglobin 29.2, Mean Corpuscular Hemoglobin Concent 32.3, Mean Platelet Volume 9.9, Neutrophils (%) (Auto) 61.1, Lymphocytes (%) (Auto) 27.7, Monocytes (%) (Auto) 6.8, Eosinophils (%) (Auto) 2.9, Basophils (%) (Auto) 0.3, Neutrophils # (Auto) 8.38, Lymphocytes # (Auto) 3.81, Monocytes # (Auto) 0.94, Eosinophils # (Auto) 0.40, Basophils # (Auto) 0.04 02/21/18 18:35 Test 02/21/18 18:35 02/21/18 19:32 02/21/18 20:08 02/22/18 00:24 White Blood Count 13.74 K/uL (4.8-10.8) Red Blood Count 4.87 M/uL (4.2-5.4) Hemoglobin 14.2 g/dL (12.0-16.0) Hematocrit 44.0 % (37-47) Mean Corpuscular Volume 90.3 fL (80-100) Mean Corpuscular Hemoglobin 29.2 pg (25-34) Mean Corpuscular Hemoglobin Concent 32.3 g/dl (32-36) Platelet Count 339 K/uL (130-400) Mean Platelet Volume 9.9 fL (7.4-10.4) Neutrophils (%) (Auto) 61.1 % Lymphocytes (%) (Auto) 27.7 % Monocytes (%) (Auto) 6.8 % Eosinophils (%) (Auto) 2.9 % Basophils (%) (Auto) 0.3 % Neutrophils # (Auto) 8.38 K/uL (1.4-6.5) Lymphocytes # (Auto) 3.81 K/uL (1.2-3.4) Monocytes # (Auto) 0.94 K/uL (0.11-0.59) Eosinophils # (Auto) 0.40 K/uL (0-0.5) Basophils # (Auto) 0.04 K/uL (0-0.2) RDW Standard Deviation 45.3 fL (36.4-46.3) RDW Coefficient of Variation 13.8 % (11.5-14.5) Immature Granulocyte % (Auto) 1.2 % Immature Granulocyte # (Auto) 0.17 K/uL (0.00-0.02) Prothrombin Time 9.8 SECONDS (9.0-12.0) Prothromb Time International Ratio 0.9 (0.9-1.1) Anion Gap 3.0 mmol/L (3-11) Estimated GFR () 70.0 Estimated GFR (Non- 60.4 BUN/Creatinine Ratio 14.5 (10-20) Calcium Level 8.9 mg/dl (8.5-10.1) Magnesium Level 1.8 mg/dl (1.8-2.4) Total Bilirubin 0.5 mg/dl (0.2-1) Aspartate Amino Transf (AST/SGOT) 18 U/L (15-37) Alanine Aminotransferase (ALT/SGPT) 13 U/L (12-78) Alkaline Phosphatase 102 U/L (45-117) Troponin I < 0.015 ng/ml (0-0.045) Pro-B-Type Natriuretic Peptide 227 pg/ml (0-1800) Total Protein 7.6 gm/dl (6.4-8.2) Albumin 3.0 gm/dl (3.4-5.0) Globulin 4.6 gm/dl (2.5-4.0) Albumin/Globulin Ratio 0.7 (0.9-2) Lipase 127 U/L (73-393) Influenza Type A Antigen Neg for Influ A (NEG) Influenza Type B Antigen Neg for Influ B (NEG) Arterial Blood pH 7.22 (7.35-7.45) Arterial Blood Partial Pressure CO2 91 mmHg (35-46) Arterial Blood Partial Pressure O2 80 mm/Hg (80-95) Arterial Blood HCO3 36 mmol/L (19-24) Arterial Blood Oxygen Saturation 93.6 % (90-95) Arterial Blood Base Excess 5.0 mEq/L (-9-1.8) Arterial Blood Gas Delivery 10L [place] Test POS (POS) Bedside Blood Gas pH (LAB) 7.35 (7.35-7.45) Bedside Blood Gas pCO2 (LAB) 74 mmHg (35-46) Bedside Blood Gas pO2 (LAB) 72 mmHg (80-95) Bedside Blood Gas HCO3 (LAB) 41 meq/L (19-24) Bedside Blood Gas Total CO2 > 40 mEq/l (24-31) Bedside Blood Gas Base Excess (LAB) 15.0 meq/L (-9-1.8) Bedside Blood Gas O2 Saturation 93.0 % (90-95) Date/Time Source Procedure Growth Status 02/22/18 05:45 Nasal MRSA DNA Surveillance Screen - Final Specimen Negative for MRSA by DNA Probe Complete Assessment and Plan 83 yo female with PMH significant for advanced dementia, nonverbal at baseline, presented to [facility] with acute respiratory distress 2/2 aspiration. Pt was transferred from [facility]. Assessment; Patient was lethargic, nonverbal this am. Later in the day she perked up and was awake (non-verbal at baseline). CXR was unremarkable for signs of infection and there is a mild leukocytosis. Treating for suspected aspiration PNA considering hypoxemia and respiratory distress on admission. Discussed intermediate manager care planning with patient's children. Depending on swallow study results, the patient may require a higher level of care, palliative medicine, etc. Plan today; Speech evaluation, IV Unasyn, initial communication with family, CXR and routine labs for tomorrow am [facility] phone # : [phone] Acute on chronic hypoxic respiratory failure with COPD - Uses 3L O2 at baseline, BIPAP was weaned this am, - DuoNeb - Continue home Pulmicort Possible aspiration pneumonia - Aspiration precautions - IV Unasyn - Speech evaluation Other chronic conditions: HTN - stable currently. Not on any home meds Hypothyroidism- Continue levothyroxine GERD- Continue pantoprazole Dementia- Continue Lorazepam VTE ppx- Enoxaparin 40mg SC q12h DO NOT RESUSCITATE Assessment/Plan Resident Physician Supervision Note: I was present with Dr. De Souza during the history and exam. I discussed the case with the resident and agree with the findings and plan as documented in the note. Any exceptions or clarifications are listed here: some improvement in respiratory status and O2 demands throughout the day, with tolerating venti- mask instead of BIPAP by the afternoon. Awaiting DIRECTOR ACUTE evaluation. Patient remains completely nonverbal, but is much more aware and responsive in the later afternoon today. Continue supportive respiratory care and IV abx - family discuss as noted above. Leobardo, , is POA and was not present.
[2018-02-22] MEDS: SODIUM CHLORIDE 0.45% 1000ML 1,000 ML IV SCH (15:30)
[2018-02-23] VITALS (10 sets, daily range): BP systolic 131–170; BP diastolic 74–105; PULSE 73–122; TEMP 36.8–37.1; O2SAT 90–97
[2018-02-23] MEDS: SODIUM CHLORIDE 0.45% 1000ML 1,000 ML IV SCH ×2 (04:02→13:56)
[2018-02-23] MEDS: AMPICILLIN/SULBACTAM SOD INJ 3,000 MG in SODIUM CHLORIDE 0.9% 100ML 100 ML IV SCH ×4 (04:02→21:09)
[2018-02-23] MEDS: LEVOTHYROXINE 50 MCG TAB PO SCH (05:20)
[2018-02-23] MEDS: ENOXAPARIN 40 MG/0.4 ML SYR SC SCH (05:21)
[2018-02-23 06:09] LABS: BASO % 0.2 %; BASO ABS # 0.02 K/uL (0-0.2); EOS % 2.9 %; EOS ABS # 0.33 K/uL (0-0.5); HEMATOCRIT 38.1 % (37-47); HEMOGLOBIN 12.4 g/dL (12.0-16.0); IG# 0.03 K/uL (0.00-0.02); MEAN CELL VOLUME 88.8 fL (80-100); MEAN CORPUSCULAR HEMOGLOBIN 28.9 pg (25-34); MEAN CORPUSCULAR HGB CONC 32.5 g/dl (32-36); MEAN PLATELET VOLUME 9.1 fL (7.4-10.4); MONO % 7.7 %; MONO ABS # 0.89 K/uL (0.11-0.59); NEUT % 75.9 %; NEUT ABS # 8.77 K/uL (1.4-6.5); PLATELET COUNT 239 K/uL (130-400); RED CELL DISTRIBUTION WIDTH CV 13.8 % (11.5-14.5); RED CELL DISTRIBUTION WIDTH SD 44.5 fL (36.4-46.3); WHITE BLOOD COUNT 11.54 K/uL (4.8-10.8)
[2018-02-23 06:38] LABS: CREATININE 0.66 mg/dl (0.60-1.20); POTASSIUM 4.4 mmol/L (3.5-5.1)
[2018-02-23] MEDS: BUDESONIDE 0.5 MG/2 ML VIAL (PULMICORT) INH SCH ×2 (07:08→19:11)
[2018-02-23] MEDS: ALBUT/IPRATROP 3MG/0.5MG NEB 3 ML VIAL INH SCH ×4 (07:09→19:10)
[2018-02-23] MEDS: SUCRALFATE 1 GM TAB PO SCH ×4 (07:30→21:25)
[2018-02-23] MEDS: DOCUSATE SODIUM 100 MG CAP PO SCH ×2 (07:32→21:00)
[2018-02-23] MEDS: SODIUM CHLORIDE 0.65% NA SOLN 45 ML (OCEAN) NAE SCH ×2 (07:32→21:00)
[2018-02-23] MEDS: PANTOprazole SOD 40 MG TAB PO SCH ×2 (07:32→21:00)
[2018-02-23] MEDS: LORAZEPAM 0.5 MG TAB PO SCH ×2 (07:38→21:13)
--- NOTE | 2018-02-23 08:02 | Family Medicine Progress Note ---
Progress Note Date of Service Feb 23, 2018. Subjective Unable to obtain ROS and history. Patient is nonverbal at baseline. Medications Current Inpatient Medications Medications (Trade) Dose Ordered Sig/Heidi Route Start Time Stop Time Status Last Admin Dose Admin Enoxaparin Sodium (Lovenox Inj) 40 mg Q24H SC 02/22/18 06:00 03/24/18 05:59 02/23/18 05:21 40 MG Acetaminophen (Tylenol Tab) 650 mg Q4H PRN PO 02/22/18 01:15 03/24/18 01:14 Al Hydrox/Mg Hydrox/Simethicone (Maalox Max Susp) 15 ml Q4H PRN PO 02/22/18 01:15 03/24/18 01:14 Ondansetron HCl (Zofran Inj) 4 mg Q6H PRN IV 02/22/18 01:15 03/24/18 01:14 Nitroglycerin (Nitrostat Tab) 0.4 mg UD PRN SL 02/22/18 01:15 03/24/18 01:14 Polyethylene (Miralax Powder Packet) 17 gm DAILY PRN PO 02/22/18 01:15 03/24/18 01:14 Budesonide (Pulmicort Respules 0.5MG/ 2ML Neb Soln) 0.5 mg Q12R INH 02/22/18 08:00 03/24/18 07:59 02/22/18 18:59 0.5 MG Docusate Sodium (coLACE CAP) 100 mg BID PO 02/22/18 09:00 03/24/18 08:59 Levothyroxine Sodium (Synthroid Tab) 50 mcg DAILYBB PO 02/22/18 06:00 03/24/18 05:59 02/22/18 05:54 50 MCG Lorazepam (Ativan Tab) 0.25 mg Q12H PO 02/22/18 08:00 03/24/18 07:59 02/23/18 07:38 0.25 MG Magnesium Hydroxide (Milk Of Magnesia Susp) 30 ml DAILY PRN PO 02/22/18 01:15 03/24/18 01:14 Pantoprazole Sodium (Protonix Tab) 40 mg BID PO 02/22/18 09:00 03/24/18 08:59 Sodium Chloride ([place] Nasal [place]) 2 sprays BID CAROLINE 02/22/18 09:00 03/24/18 08:59 Sucralfate (Carafate Tab) 1 gm ACHS PO 02/22/18 07:00 03/24/18 06:59 02/23/18 15:44 1 GM Albuterol/ Ipratropium (Duoneb) 3 ml QIDR INH 02/22/18 08:00 03/24/18 07:59 02/23/18 15:07 3 ML Ampicillin Sodium/ Sulbactam Sodium 3000 mg/Sodium Chloride 108 ml @ 200 mls/hr Q6H IV 02/22/18 04:00 03/01/18 03:59 02/23/18 15:44 200 MLS/HR Sodium Chloride 1,000 ml @ 85 mls/hr [id number] IV 02/22/18 15:15 03/24/18 15:14 02/23/18 13:56 85 MLS/HR Objective Vital Signs Date Time Temp Pulse Resp B/P (MAP) Pulse Ox O2 Delivery O2 Flow Rate FiO2 02/23/18 15:41 36.9 96 20 170/93 (118) 95 Nasal Cannula 4.0 02/23/18 15:07 89 20 96 Nasal Cannula 2.0 02/23/18 12:03 36.9 104 22 156/83 (107) 92 Nasal Cannula 3.0 02/23/18 12:00 Oxyhood 3.0 Nasal Cannula 02/23/18 11:17 98 22 91 Nasal Cannula 4.0 02/23/18 08:00 Oxymask 5.0 02/23/18 06:59 37.1 122 23 159/105 (123) 90 Oxymask 02/23/18 04:24 37.1 82 18 139/82 (101) 97 02/23/18 04:00 BiPAP 02/23/18 02:00 73 94 40 02/22/18 23:59 BiPAP 02/22/18 23:34 37.1 83 18 150/75 (100) 95 02/22/18 23:05 78 94 40 02/22/18 20:00 Oxymask BiPAP 02/22/18 19:12 36.7 78 20 131/67 (88) 99 BiPAP 02/22/18 19:03 73 95 40 02/22/18 19:02 73 26 95 BiPAP/CPAP 40 Physical Exam General Appearance: WD/WN, no apparent distress Neck: supple, no adenopathy, thyroid normal Respiratory/Chest: chest non-tender, lungs clear, + rhonchi, + wheezing ( diffused ) Cardiovascular: regular rate, rhythm, no edema, no murmur Abdomen: normal bowel sounds Extremities: non-tender, normal inspection Skin: normal color, warm/dry, no rash Laboratory Results 02/23/18 05:57 Red Blood Count 4.29, Mean Corpuscular Volume 88.8, Mean Corpuscular Hemoglobin 28.9, Mean Corpuscular Hemoglobin Concent 32.5, Mean Platelet Volume 9.1, Neutrophils (%) (Auto) 75.9, Lymphocytes (%) (Auto) 13.0, Monocytes (%) (Auto) 7.7, Eosinophils (%) (Auto) 2.9, Basophils (%) (Auto) 0.2, Neutrophils # (Auto) 8.77, Lymphocytes # (Auto) 1.50, Monocytes # (Auto) 0.89, Eosinophils # (Auto) 0.33, Basophils # (Auto) 0.02 02/23/18 05:57 Test 02/23/18 05:57 White Blood Count 11.54 K/uL (4.8-10.8) Red Blood Count 4.29 M/uL (4.2-5.4) Hemoglobin 12.4 g/dL (12.0-16.0) Hematocrit 38.1 % (37-47) Mean Corpuscular Volume 88.8 fL (80-100) Mean Corpuscular Hemoglobin 28.9 pg (25-34) Mean Corpuscular Hemoglobin Concent 32.5 g/dl (32-36) Platelet Count 239 K/uL (130-400) Mean Platelet Volume 9.1 fL (7.4-10.4) Neutrophils (%) (Auto) 75.9 % Lymphocytes (%) (Auto) 13.0 % Monocytes (%) (Auto) 7.7 % Eosinophils (%) (Auto) 2.9 % Basophils (%) (Auto) 0.2 % Neutrophils # (Auto) 8.77 K/uL (1.4-6.5) Lymphocytes # (Auto) 1.50 K/uL (1.2-3.4) Monocytes # (Auto) 0.89 K/uL (0.11-0.59) Eosinophils # (Auto) 0.33 K/uL (0-0.5) Basophils # (Auto) 0.02 K/uL (0-0.2) RDW Standard Deviation 44.5 fL (36.4-46.3) RDW Coefficient of Variation 13.8 % (11.5-14.5) Immature Granulocyte % (Auto) 0.3 % Immature Granulocyte # (Auto) 0.03 K/uL (0.00-0.02) Anion Gap 4.0 mmol/L (3-11) Est Creatinine Clear Calc Drug Dose 55.9 ml/min Estimated GFR () 95.3 Estimated GFR (Non- 82.3 BUN/Creatinine Ratio 16.2 (10-20) Calcium Level 9.0 mg/dl (8.5-10.1) Procalcitonin 0.34 ng/ml (0-0.5) Assessment and Plan 83 yo female with PMH significant for advanced dementia, nonverbal at baseline, presented to [facility] with acute respiratory distress 2/2 aspiration. Pt was transferred from [facility]. Assessment; Patient's condition is improving--appears to be close to baseline ( nonverbal). Sating well off of BIPAP. On 4L Ventimask. Speech evaluation-- recommends soft diet. Plan today; IV Unasyn. Initiated discussions with the family regarding long- term prognosis with speech/swallow issues and advanced dementia--palliative/ hospice options. Tamanna Smith phone # : [phone] POA: , Leobardo Dispo: Considering discharging tomorrow if continues to improve. Transition to PO augmentin. Reinforce end-of-life discussion/palliative/hospice at discharge. Acute on chronic hypoxic respiratory failure with COPD - Uses 3L O2 at baseline, BIPAP was weaned this am, - DuoNeb - Continue home Pulmicort Possible aspiration pneumonia - Aspiration precautions - IV Unasyn - Speech evaluation Other chronic conditions: HTN - stable currently. Not on any home meds Hypothyroidism- Continue levothyroxine GERD- Continue pantoprazole Dementia- Continue Lorazepam VTE ppx- Enoxaparin 40mg SC q12h DO NOT RESUSCITATE Assessment/Plan Resident Physician Supervision Note: I was present with Dr. De Souza during the history and exam. I discussed the case with the resident and agree with the findings and plan as documented in the note. Any exceptions or clarifications are listed here: Considerable improvement in patient mental status, speech (now speaking inappropriate sentences), and respiratory status. Tolerated diet per [employer] recommendations. Discussion with family went well - introduced the idea of recurrent aspiration pneumonia and its risk of occurrence with patient's chronic conditions. POA (Leobardo, ) was receptive, and will consider her wishes. She remains DNR/DNI. At present, she is recovering well and would likely be able to transition to floors tomorrow if O2 demand remains low and no aspiration events on present diet. She will need full feeding support with good aspiration precautions henceforth at the [place].
--- NOTE | 2018-02-23 08:46 | DIAGNOSTIC IMAGING REPORT ---
SINGLE VIEW CHEST CLINICAL HISTORY: Aspiration pneumonia. FINDINGS: An AP, portable, upright chest radiograph is compared to study dated 02/21/2018 and correlated with chest CT dated 12/17/2016. The examination is significantly degraded by portable technique and patient rotation. The cardiomediastinal silhouette is unremarkable. There is atherosclerotic calcification of the thoracic aorta. Emphysema and chronic interstitial thickening are similar to previous. There are low lung volumes. There is increasing atelectasis at the right lung base. There are small layering pleural effusions. No pneumothorax is seen. The skeletal structures are osteopenic. The bony thorax is grossly intact. IMPRESSION: 1. There are small pleural effusions, left larger than right. 2. Developing airspace consolidation is identified at the left lung base. Correlate clinically for evidence of pneumonia/aspiration pneumonitis. Radiographic follow-up to resolution is recommended. Electronically signed by: Richard Poon M.D. 02/23/2018 8:44 AM Dictated Date/Time: 02/23/2018 8:42 AM
[2018-02-24] VITALS (15 sets, daily range): BP systolic 147–183; BP diastolic 67–95; PULSE 73–94; TEMP 36.6–37; O2SAT 91–98
[2018-02-24] MEDS: SODIUM CHLORIDE 0.45% 1000ML 1,000 ML IV SCH (03:15)
[2018-02-24] MEDS: AMPICILLIN/SULBACTAM SOD INJ 3,000 MG in SODIUM CHLORIDE 0.9% 100ML 100 ML IV SCH ×4 (04:32→21:38)
[2018-02-24] MEDS: ENOXAPARIN 40 MG/0.4 ML SYR SC SCH (06:15)
[2018-02-24] MEDS: LEVOTHYROXINE 50 MCG TAB PO SCH (06:15)
[2018-02-24] MEDS: SUCRALFATE 1 GM TAB PO SCH ×4 (06:15→20:12)
[2018-02-24 06:38] LABS: CALCIUM 8.7 mg/dl (8.5-10.1); CREATININE 0.53 mg/dl (0.60-1.20); POTASSIUM 4.1 mmol/L (3.5-5.1)
[2018-02-24] MEDS: ALBUT/IPRATROP 3MG/0.5MG NEB 3 ML VIAL INH SCH ×4 (07:17→19:47)
[2018-02-24] MEDS: BUDESONIDE 0.5 MG/2 ML VIAL (PULMICORT) INH SCH ×2 (07:17→19:47)
[2018-02-24] MEDS: DOCUSATE SODIUM 100 MG CAP PO SCH ×2 (08:35→20:12)
[2018-02-24] MEDS: SODIUM CHLORIDE 0.65% NA SOLN 45 ML (OCEAN) NAE SCH ×2 (08:35→20:12)
[2018-02-24] MEDS: PANTOprazole SOD 40 MG TAB PO SCH ×2 (08:35→20:13)
[2018-02-24] MEDS: LORAZEPAM 0.5 MG TAB PO SCH ×2 (08:40→20:00)
--- NOTE | 2018-02-24 16:02 | Family Medicine Progress Note ---
Progress Note Date of Service Feb 24, 2018. Subjective Pt evaluation today including: conversation w/ patient, physical exam, chart review, lab review, review of studies, review of inpatient medication list Patient alert and responding with head movements. Denies any pain or difficulty breathing. Denies fevers/chills, CP, abdominal pain. She nods to having slept well and tolerating diet. No issues with voiding or stooling ROS is unremarkable except as noted above. Objective Vital Signs Date Time Temp Pulse Resp B/P (MAP) Pulse Ox O2 Delivery O2 Flow Rate FiO2 02/24/18 15:18 87 20 96 Nasal Cannula 2.0 02/24/18 12:00 Room Air 02/24/18 11:36 36.6 92 20 172/93 (119) 93 Room Air 02/24/18 11:10 86 20 98 Nasal Cannula 2.0 02/24/18 09:27 93 164/83 (110) 02/24/18 09:19 Nasal Cannula 3.0 02/24/18 08:20 37.0 85 22 160/95 (116) 91 2.0 02/24/18 07:18 82 20 96 Nasal Cannula 2.0 02/24/18 04:00 Nasal Cannula 3.0 02/24/18 02:52 36.8 73 16 151/89 (109) 97 02/24/18 00:22 36.7 89 18 147/87 (107) 96 02/23/18 23:59 Nasal Cannula 3.0 02/23/18 20:00 Nasal Cannula 3.0 02/23/18 19:33 36.8 98 20 131/74 (93) 95 Nasal Cannula 02/23/18 19:11 88 20 96 Nasal Cannula 2.0 Physical Exam Notes: General Appearance: no apparent distress Head: normocephalic, atraumatic Eyes: sclerae normal, + pertinent finding (Eyes watering) ENT: hearing grossly normal, Neck: supple, no JVD Respiratory/Chest: no respiratory distress, no accessory muscle use, + decreased breath sounds, + pertinent finding (No crackles or wheezing) Cardiovascular: regular rate, rhythm, no murmur, normal peripheral pulses Abdomen/GI: normal bowel sounds, non tender, soft Extremities/Musculoskelatal: no calf tenderness, no pedal edema Neurologic/Psych: alert, normal mood/affect, + pertinent finding (Not talkative. Responds with shaking/nodding head) Skin: normal color, warm/dry, no rash Laboratory Results Results Past 24 Hours Test 02/24/18 05:43 Range/Units Sodium Level 134 136-145 mmol/L Potassium Level 4.1 3.5-5.1 mmol/L Chloride Level 97 98-107 mmol/L Carbon Dioxide Level 34 21-32 mmol/L Anion Gap 3.0 3-11 mmol/L Blood Urea Nitrogen 7 7-18 mg/dl Creatinine 0.53 0.60-1.20 mg/dl Est Creatinine Clear Calc Drug Dose 69.9 ml/min Estimated GFR () 102.5 Estimated GFR (Non- 88.4 BUN/Creatinine Ratio 12.2 10-20 Random Glucose 92 70-99 mg/dl Calcium Level 8.7 8.5-10.1 mg/dl Assessment and Plan 83 year old female resident of [facility] with pMHx of COPD with continuous oxygen need at baseline, HTN, hypothyroidism, and dementia presents to hospital hypoxia from possible aspiration requiring Bipap. Acute on chronic hypoxic respiratory failure with COPD - resolved - Return to 3L O2 via NC (baseline requirement). Bipap PRN - Continue home Pulmicort and DuoNeb Possible aspiration pneumonia - Speech evaluation recommends: 1.Mechanical soft diet with thin liquids straws ok 2.Aspiration precautions fully upright and fully alert for all intake, alternate consistencies 3.Safe swallow strategies small bites, small sips, slow rate 4.Pt. will need to be fed all meals- discontinue if difficulty noted - Continue IV Unasyn - transition to PO Augmentin on discharge HTN - stable currently. Not on any home meds Hypothyroidism - Continue levothyroxine GERD - Continue pantoprazole Dementia - Continue Lorazepam VTE ppx - Enoxaparin 40mg SC q12h DO NOT RESUSCITATE Dispo: For return to [facility]. Awaiting confirmation of bed Resident Physician Supervision Note: I interviewed and examined the patient. Discussed with Dr. Davis and agree with findings and plan as documented in the note. Any exceptions or clarifications are listed here: None Documented By: Matt Monge no meaningful HPI or ROS obtainable vitals noted nad breathing unlabored no pallor or icterus, lungs suprrisinly relatively clear aspiration pneumonia/hypoxia - improving. continue abx, speech tx, likely OK to return to SNF in 1-2 days otherwise as above DVT proph - lovenox Continued [facility] stay due to: other Discharge planning: longterm facility Resident Tracking Resident Involvement: Resident Care Provided Care Provided: Adult Hospital Medicine
[2018-02-25] MEDS: AMPICILLIN/SULBACTAM SOD INJ 3,000 MG in SODIUM CHLORIDE 0.9% 100ML 100 ML IV SCH ×2 (04:14→10:07)
[2018-02-25 05:52] LABS: HEMATOCRIT 38.2 % (37-47); HEMOGLOBIN 12.5 g/dL (12.0-16.0); MEAN CELL VOLUME 87.4 fL (80-100); MEAN CORPUSCULAR HEMOGLOBIN 28.6 pg (25-34); MEAN CORPUSCULAR HGB CONC 32.7 g/dl (32-36); MEAN PLATELET VOLUME 9.6 fL (7.4-10.4); PLATELET COUNT 252 K/uL (130-400); RED CELL DISTRIBUTION WIDTH CV 13.6 % (11.5-14.5); RED CELL DISTRIBUTION WIDTH SD 43.7 fL (36.4-46.3); WHITE BLOOD COUNT 6.43 K/uL (4.8-10.8)
[2018-02-25] MEDS: ENOXAPARIN 40 MG/0.4 ML SYR SC SCH (06:20)
[2018-02-25 06:23] VITALS: BP 175/99; PULSE 92; TEMP 37; O2SAT 93
[2018-02-25 06:24] LABS: CREATININE 0.75 mg/dl (0.60-1.20)
[2018-02-25] MEDS: SUCRALFATE 1 GM TAB PO SCH ×2 (06:25→11:00)
[2018-02-25] MEDS: LEVOTHYROXINE 50 MCG TAB PO SCH (06:26)
[2018-02-25] MEDS: BUDESONIDE 0.5 MG/2 ML VIAL (PULMICORT) INH SCH (06:58)
[2018-02-25] MEDS: ALBUT/IPRATROP 3MG/0.5MG NEB 3 ML VIAL INH SCH ×2 (06:58→11:20)
[2018-02-25 07:00] VITALS: PULSE 84; O2SAT 93
[2018-02-25] MEDS: LORAZEPAM 0.5 MG TAB PO SCH (08:20)
[2018-02-25] MEDS: SODIUM CHLORIDE 0.65% NA SOLN 45 ML (OCEAN) NAE SCH (08:22)
[2018-02-25] MEDS: PANTOprazole SOD 40 MG TAB PO SCH (08:22)
[2018-02-25] MEDS: DOCUSATE SODIUM 100 MG CAP PO SCH (08:22)
[2018-02-25] MEDS ORDERED: AMOX875T PO (10:33)
[2018-02-25] MEDS ORDERED: IPRASOL4 INH (10:33)
--- NOTE | 2018-02-25 10:37 | Discharge Instructions ---
Discharge Instructions Date of Service February 25, 2018. Admission Reason for Admission: Hypoxia Discharge Discharge Diagnosis / Problem: Aspiration pneumonia Discharge Goals Goal(s): Decrease discomfort, Improve disease control, Diagnostic testing, Therapeutic intervention Activity Recommendations Activity Limitations: resume your previous activity . Instructions / Follow-Up Instructions / Follow-Up 83 year old female resident of [facility] with pMHx of COPD with continuous oxygen need at baseline, HTN, hypothyroidism, and dementia presents to hospital with hypoxia from possible aspiration requiring Bipap. Acute on chronic hypoxic respiratory failure with COPD - resolved - Return to 3L O2 via NC (baseline requirement). Bipap PRN - Continue home Pulmicort and DuoNeb Possible aspiration pneumonia - Speech evaluation recommends: 1.Mechanical soft diet with thin liquids straws ok 2.Aspiration precautions fully upright and fully alert for all intake, alternate consistencies 3.Safe swallow strategies small bites, small sips, slow rate 4.Pt. will need to be fed all meals- discontinue if difficulty noted - Completed 4 days of IV Unasyn, transitioned to PO Augmentin 875mg BID x 6 more days on discharge HTN - stable currently. Not on any home meds Hypothyroidism - Continue levothyroxine GERD - Continue pantoprazole Dementia - Continue Lorazepam VTE ppx - Enoxaparin 40mg SC q12h DO NOT RESUSCITATE Current Hospital Diet Patient's current hospital diet: Regular Diet Discharge Diet Recommended Diet: Regular Diet Diet Texture: Mechanical Soft (ground) Pending Studies Studies pending at discharge: no Medical Emergencies . Who to Call and When: Medical Emergencies: If at any time you feel your situation is an emergency, please call 911 immediately. . Non-Emergent Contact Non-Emergency issues call your: Primary Care Provider . . "Provider Documentation" section prepared by Maryjane Davis. . Resident Tracking Resident Involvement: Resident Care Provided Care Provided: Adult Hospital Medicine
--- NOTE | 2018-02-25 10:40 | Discharge Summary ---
Discharge Summary Date of Service February 25, 2018. Discharge Summary Admission Date: Feb 22, 2018 at 01:16 Discharge Date: February 25, 2018 Discharge Disposition: group home facility Principal Diagnosis: Aspiration pneumonia with acute on chronic hypoxic respiratory failure Immunizations: Have You Had Influenza Vaccine: Yes Influenza Vaccine Date: Jul 15, 2013 History of Tetanus Vaccine?: Unknown History of Pneumococcal: Yes History of Hepatitis B Vaccine: No Medication Reconciliation New Medications: Amoxicillin & Pot Clavulanate (Augmentin 875-125 mg) 1 Tab Tab 1 TAB PO BID for 6 Days, #12 TAB Ipratropium-Albuterol (Duoneb) 3 Ml Nebu 3 ML INH QIDR, #1 EA Continued Medications: Acetaminophen (Tylenol) 325 Mg Tab 650 MG PO Q8 PRN for Pain, TAB Bisacodyl (Dulcolax) Unknown Strength Sup 1 SUPP AL PRN UD, SUP Budesonide (Inhalation) (Pulmicort Respules 0.5MG/2ML) 0.5 Mg/2 Ml Radhika 1 UNIT PO Q12 Cholecalciferol (Vitamin D) 2,000 Unit Cap 2000 UNITS PO DAILY Docusate Sodium (Docusate Sodium) 100 Mg Cap 100 MG PO BID Ketoconazole (Topical) (Ketoconazole) 2 % Sha 1 APPLN TOP 2XWK for 30 Days, #120 ML 1 Refill Levothyroxine Sodium (Synthroid) 50 Mcg Tab 50 MCG PO DAILY, TAB Lorazepam (Lorazepam) 0.5 Mg Tab 0.25 MG PO BI Magnesium Hydroxide (Milk Of Magnesia) 30 Ml Susp 30 ML PO PRN UD for NO BM 3 DAYS, ML Miconazole Nitrate (Topical) (Aloe Pfeifer Clear Antifung) 2 % Oin 1 APPLN TOP AMPM APPLY TO GRION Pantoprazole (Pantoprazole Sodium) 40 Mg Tab 40 MG PO BID Saline (Deep Sea Nasal [place]) 0.65 % Spr 2 SPRAYS CAROLINE BID Sodium Phosphate/Biphosphate (Fleet Enema) Manju 1 EA AL PRN UD for PRN FOR NO BM 4 DAYS, BTL Sucralfate (Sucralfate) 1 Gm Tab 1 GM PO ACHS [Therms-M Tab] () 1 TAB PO DAILY Discharge Exam Patient alert and responding with head movements. Denies any pain or difficulty breathing. Denies fevers/chills, CP, abdominal pain. She nods to having slept well and tolerating diet. No issues with voiding or stooling. Nursing staff having difficulty with medication administration, but patient taking from without issue. ROS is unremarkable except as noted above. Physical Exam General Appearance: no apparent distress Head: normocephalic, atraumatic Eyes: sclerae normal, + pertinent finding (Eyes watering) ENT: hearing grossly normal, Neck: supple, no JVD Respiratory/Chest: no respiratory distress, no accessory muscle use, + decreased breath sounds, + pertinent finding (No crackles or wheezing) Cardiovascular: regular rate, rhythm, no murmur, normal peripheral pulses Abdomen/GI: normal bowel sounds, non tender, soft Extremities/Musculoskelatal: no calf tenderness, no pedal edema Neurologic/Psych: alert, normal mood/affect, + pertinent finding (Not talkative. Responds with shaking/nodding head) Skin: normal color, warm/dry, no rash Hospital Course 83 year old female resident of [facility] with pMHx of COPD with continuous oxygen need at baseline, HTN, hypothyroidism, and dementia presents to hospital with hypoxia from possible aspiration requiring Bipap. Acute on chronic hypoxic respiratory failure with COPD - resolved - Return to 3L O2 via NC (baseline requirement). Bipap PRN - Continue home Pulmicort and DuoNeb Possible aspiration pneumonia - Speech evaluation recommends: 1.Mechanical soft diet with thin liquids straws ok 2.Aspiration precautions fully upright and fully alert for all intake, alternate consistencies 3.Safe swallow strategies small bites, small sips, slow rate 4.Pt. will need to be fed all meals- discontinue if difficulty noted - Completed 4 days of IV Unasyn, transitioned to PO Augmentin 875mg BID x 6 more days on discharge HTN - stable currently. Not on any home meds Hypothyroidism - Continue levothyroxine GERD - Continue pantoprazole Dementia - Continue Lorazepam VTE ppx - Enoxaparin 40mg SC q12h DO NOT RESUSCITATE Resident Physician Supervision Note: I interviewed and examined the patient. Discussed with Dr. Davis and agree with findings and plan as documented in the note. Any exceptions or clarifications are listed here: None Documented By: Matt Monge no meaingful HPI or ROS obtainable present, feeding her, updated him, he is aware of her situation, agrees w PO intake/treat pneumnonias when they occur aspiration pneumonia - stable for return to [facility], augmentin, speech therapy. Total Time Spent: Less than 30 minutes This includes examination of the patient, discharge planning, medication reconciliation, and communication with other providers. Discharge Instructions Please refer to the electronic Patient Visit Report (Discharge Instructions) for additional information. Additional Copies To Chaz Block M.D. Resident Tracking Resident Involvement: Resident Care Provided Care Provided: Adult [facility]
[2018-02-25 10:56] VITALS: BP 175/99; PULSE 84; TEMP 37; O2SAT 93
[2018-02-25 11:21] VITALS: PULSE 84; O2SAT 94
== END 2018-02-25 13:30 | DRG 177 ==
LOC: EDBD 19:00 → C.EDA 19:02 → C.2T 02-22 01:16 → ENRESERV 02-22 01:31 → C.MS2W 02-24 18:14
PROVIDERS: ADMIT Internal Medicine; ATTEND Family Medicine
DX: J69.0 Pneumonitis due to inhalation of food and vomit (principal); J96.21 Acute and chronic respiratory failure with hypoxia; J44.9 Chronic obstructive pulmonary disease, unspecified; I10 Essential (primary) hypertension; F03.90 Unspecified dementia, unspecified severity, without behavioral disturbance, psychotic disturbance, mood disturbance, and anxiety; Z86.73 Personal history of transient ischemic attack (TIA), and cerebral infarction without residual deficits; R09.02 Hypoxemia; Z99.81 Dependence on supplemental oxygen; K59.00 Constipation, unspecified